=== PATIENT | female | born 1965 | race Caucasian/White ===

== ENCOUNTER 2024-03-03 18:15 | Emergency (ER) | payer OTHER ==
[2024-03-03 18:20] VITALS: TEMP 98.5; BMI 23.6
[2024-03-03] MEDS: SODIUM CHLORIDE 0.9% 500 ML INFUS.BAG IV ONE (20:09)
[2024-03-03 20:12] LABS: BASO % 0.7 % (0-2.0); EOS % 0.6 % (0-4.5); HEMATOCRIT 39.6 % (32.4-45.2); HEMOGLOBIN 13.4 GM/dL (10.7-15.3); LYMPH % 25.1 % (8-40); MCH 29.7 pg (25.7-33.7); MCHC 33.8 g/dl (32.0-36.0); MEAN CELL VOLUME 87.8 fl (80-96); MEAN PLT VOLUME 9.8 fl (7.5-11.1); MONO % 8.1 % (3.8-10.2); NEUT % 65.5 % (42.8-82.8); PLATELET COUNT 236 10^3/uL (134-434); RBC 4.51 M/mm3 (3.60-5.2); RDW 13.3 % (11.6-15.6); WHITE BLOOD COUNT 8.1 K/mm3 (4.0-10.0)
[2024-03-03 21:07] LABS: POTASSIUM 3.6 mmol/L (3.5-5.1)
[2024-03-03 21:09] LABS: CALCIUM 9.6 mg/dL (8.5-10.1)
[2024-03-03 21:10] LABS: ALBUMIN 4.2 g/dl (3.4-5.0); BLOOD UREA NITROGEN 9.7 mg/dL (7-18); MAGNESIUM 2.4 mg/dL (1.8-2.4)
[2024-03-03 21:13] LABS: CREATININE 0.8 mg/dL (0.55-1.3)
[2024-03-03 21:14] LABS: BILIRUBIN,TOTAL 1.1 mg/dL (0.2-1); TOT PROT 7.6 g/dl (6.4-8.2)
[2024-03-03 22:28] VITALS: BP 135/78; PULSE 68; RESP 16
== END 2024-03-03 22:05 | disposition home or self-care (01) ==
LOC: JER 18:15
DX: R42 Dizziness and giddiness (principal); R11.0 Nausea; R63.0 Anorexia; Z20.822 Contact with and (suspected) exposure to COVID-19
CPT/HCPCS: 0241U-QW; 36415; 71045-TC-FY; 80053; 83735; 84484; 85025; 93005; 93010; 99285-25